=== PATIENT | female | born 1970 | race Caucasian/White ===

== ENCOUNTER 2020-10-31 21:40 | Emergency (ER) | payer OTHER ==
[~2020-10-31] VITALS: Ht 160 cm; Wt 86.2 kg
[~2020-10-31 21:40] MED LIST: COLACE 100 MG100 MG PO; HYDROCODONE-AP1 EAC6 PO; LEVAQUIN 500 M500 M2 PO; NORCO 5-325 TA1 EACH PO; ONDANSETRON HCL4 M1 PO; ONDANSETRON HCL4 M2 PO; PEPCID20 MG PO; PHENERGAN 25 MG25 M1 PO; SINGULAIR 10 MG10 M1 PO; VENTOLIN HFA 1818 GM INH
[2020-10-31] MEDS ORDERED: SYMBICORT160 MCG/4. INH (22:01)
[2020-10-31] MEDS ORDERED: FLONASE 0.05%50 MCG NARES (22:01)
[2020-10-31 22:24] LABS: ABSOLUTE MONOCYTES 0.3 thou/uL (0.0-1.2); ABSOLUTE NEUTROPHILS 1.6 thou/uL (1.6-8.1); BASOPHILS 0.2 %; EOSINOPHILS 0.8 %; HEMATOCRIT 44.4 % (37.0-47.0); HEMOGLOBIN 14.9 gm/dL (12.0-15.0); LYMPHOCYTES 33.9 %; MCH 27.4 pg (26.0-34.0); MCHC 33.6 g/dL (28.0-37.0); MCV 81.6 fL (80.0-100.0); MONOCYTES 9.7 %; MPV 7.3 fl. (7.2-11.1); NUCLEATED RBCS 0 /100WBC; PLATELET COUNT* 186 thou/uL (150-400); POLYS 55.4 %; RBC 5.44 mil/uL (4.20-5.00); RDW-CV 13.9 % (10.5-14.5)
[2020-10-31 22:33] LABS: CALCIUM 8.7 mg/dL (8.5-10.1); POTASSIUM 3.4 mmol/L (3.5-5.1)
[2020-10-31 22:38] LABS: ALBUMIN 4.1 g/dL (3.4-5.0); TOTAL BILIRUBIN 0.3 mg/dL (<0.1-1.0); TOTAL PROTEIN 7.9 g/dL (6.4-8.2)
[2020-10-31] MEDS ORDERED: ACETAMINOPHEN-1 EAC2 PO (23:58)
[2020-10-31] MEDS ORDERED: ZOFRAN ODT4 MG PO (23:58)
[2020-11-01 00:08] VITALS: BP 148/70
== END 2020-11-01 00:10 | disposition home or self-care (01) ==
LOC: M.ERS 21:40
PROVIDERS: Personal Emergency Response Attendant
DX: U07.1 COVID-19 (principal); E86.0 Dehydration; R51.9 Headache, unspecified; J45.909 Unspecified asthma, uncomplicated; Z90.49 Acquired absence of other specified parts of digestive tract; Z79.899 Other long term (current) drug therapy